=== PATIENT | male | born 2000 | race Caucasian/White ===

== ENCOUNTER 2021-11-29 00:48 | Emergency (ER) | payer BC ==
[~2021-11-29] VITALS: Ht 177.8 cm; Wt 72.7 kg
--- NOTE | 2021-11-29 00:50 | PHYS DOC ---
Past History Past Medical History: Asthma General Adult HPI: HPI: ".. I ve had abdomen and chest pain.. nausea .. vomiting.. and diarrhea.. .. it may have been the pizza.. from [employer]... " Patient is a 21 year old male who presents with above hx and complaints generalized abdomen pain with some referral to chest area. Patient has had nausea and vomiting and diarrhea. Patient may have had some bad food however his girlfriend ate the same pizza and did not get sick. No recent travel. No specific ill contacts. No history of trauma. No history of tarry stools. Patient did not get flu vaccination. Patient did not get COVID vaccination. Patient does have a past history of asthma. No history of gallbladder disease with him but there has been a history of gallbladder disease with mother. Review of Systems: Review of Systems: Constitutional: Denies fever or chills Eyes: Denies change in visual acuity HENT: Denies nasal congestion or sore throat Respiratory: Denies cough or shortness of breath Cardiovascular: Epigastric pain GI: Complains of generalized abdominal pain, nausea, vomiting and diarrhea : Denies dysuria Musculoskeletal: Denies back pain or joint pain Integument: Denies rash Neurologic: Denies headache, focal weakness or sensory changes Endocrine: Denies polyuria or polydipsia Lymphatic: Denies swollen glands Psychiatric: Denies depression or anxiety Family History: Family History: Gallbladder disease of mother Current Medications: Current Meds: See nursing for home meds Allergies: Allergies: No known drug allergies Physical Exam: PE: Constitutional: Well developed, well nourished, no acute distress, non-toxic appearance. [] HENT: Normocephalic, atraumatic, bilateral external ears normal, oropharynx moist, no oral exudates, nose normal. [] Eyes: PERRLA, EOMI, conjunctiva normal, no discharge. [] Neck: Normal range of motion, no tenderness, supple, no stridor. [] Cardiovascular:Heart rate regular rhythm, no murmur [] Lungs & Thorax: Bilateral breath sounds equal apex with scattered wheezes on auscultation [] Abdomen: Bowel sounds hyperactive, soft, gastric tenderness, no masses, no pulsatile masses. [] Skin: Warm, dry, no erythema, no rash. [] Back: No tenderness, no CVA tenderness. [] Extremities: No tenderness, no cyanosis, no clubbing, ROM intact, no edema. No psoas sign. Neurologic: Alert and oriented X 3, normal motor function, normal sensory function, no focal deficits noted. [] Psychologic: Affect anxious, judgement normal, mood normal. [] EKG: EKG: My interpretation of EKG shows a sinus rhythm at 67 bpm. No acute morphology time of this EKG is 138 [] Radiology/Procedures: Radiology/Procedures: [][address] [address] IMAGING REPORT Signed PATIENT: KERRY MCRAE ACCOUNT: [id number] : 2000 LOCATION: ER AGE: 21 SEX: M EXAM STATUS: PRE ER ORD. PHYSICIAN: BERENICE NEWMAN MD REASON: nvd PROCEDURE: ACUTE ABDOMEN SERIES EXAM: Frontal view of the chest, AP views of the abdomen in upright and supine positions. CLINICAL INDICATION: Reason: nvd / Spl. Instructions: / History: COMPARISON: None. FINDINGS and IMPRESSION: The heart is not enlarged. Mediastinal and hilar contours are normal. No focal parenchymal airspace opacity. No pleural effusion or pneumothorax. No abnormal small or large bowel dilatation. Moderate colonic stool content. No abnormal soft tissue mass effect. No suspicious calcifications are seen. No free intraperitoneal gas. Electronically signed by: Uday Nolasco MD (11/29/2021 1:25 AM) [place] DICTATED AND SIGNED BY: UDAY NOLASCO MD DATE: 11/29/21123 CC: BERENICE NEWMAN MD; PCP,NO ~ Heart Score: C/O Chest Pain: Yes HEART Score for Chest Pain: HEART Score for Chest Pain Response (Comments) Value History Slighlty/Non-Suspicious 0 ECG Normal 0 Age < 45 0 Risk Factors No Risk Factors 0 Troponin < Normal Limit 0 Total 0 Risk Factors: Risk Factors: DM, Current or recent (<one month) smoker, HTN, HLP, family history of CAD, obesity. Risk Scores: Score 0 - 3: 2.5% MACE over next 6 weeks - Discharge Home Score 4 - 6: 20.3% MACE over next 6 weeks - Admit for Clinical Observation Score 7 - 10: 72.7% MACE over next 6 weeks - Early Invasive Strategies Course & Med Decision Making: Course & Med Decision Making Pertinent Labs and Imaging studies reviewed. (See chart for details) Clear fluid diet only for the next 2 days. No solids. No milk products for flu ids only for 2 days. Push fluids such as apple juice, grape juice, Pedialyte, Gatorade, popsicles, sweet tea, Jell-O, must allow bowel rest. Take Tylenol and ibuprofen for discomfort. Follow-up primary care. Return if any concerns. May take [id number] Pepto-Bismol for diarrhea episodes. Return if any concerns. Short course of Pepcid 20 mg twice a day for the next 14 days. Patient take Zofran 8 mg up to 4 times a day for active vomiting. Impression: 1. Acute gastroenteritis [] Dragon Disclaimer: Dragon Disclaimer: This electronic medical record was generated, in whole or in part, using a voice recognition dictation system. Departure Departure: Referrals: PCP,NO (PCP) Scripts Ondansetron Hcl (ONDANSETRON HCL) 4 Mg Tablet 8 MG PO QIDPRN PRN for nv, #30 TAB Prov: BERENICE NEWMAN MD 11/29/21 Famotidine (PEPCID AC) 10 Mg Tablet 20 MG PO BID for gastritis for 14 Days, #56 TAB Prov: BERENICE NEWMAN MD 11/29/21 Dragon Disclaimer This chart was dictated in whole or in part using Voice Recognition software in a busy, high-work load, and often noisy Emergency Department environment. It may contain unintended and wholly unrecognized errors or omissions. Dragon Disclaimer This chart was dictated in whole or in part using Voice Recognition software in a busy, high-work load, and often noisy Emergency Department environment. It may contain unintended and wholly unrecognized errors or omissions. Dragon Disclaimer This chart was dictated in whole or in part using Voice Recognition software in a busy, high-work load, and often noisy Emergency Department environment. It may contain unintended and wholly unrecognized errors or omissions. BERENICE NEWMAN MD Nov 29, 2021 00:50
[2021-11-29] MEDS ORDERED: ONDANSETRON PF 4 MG/2 ML VIAL. IVP ONE (01:00)
[2021-11-29] MEDS ORDERED: KETOROLAC 30 MG/ML VIAL. IVP ONE (01:00)
[2021-11-29] MEDS ORDERED: IV RINGERS SOLUTION,LACTATED 1,000 ML IV SCH (01:00)
[2021-11-29] MEDS ORDERED: FAMOTIDINE 20 MG/2 ML VIAL IVP ONE (01:00)
--- NOTE | 2021-11-29 01:28 | RAD ---
EXAM: Frontal view of the chest, AP views of the abdomen in upright and supine positions. CLINICAL INDICATION: Reason: nvd / Spl. Instructions: / History: COMPARISON: None. FINDINGS and IMPRESSION: The heart is not enlarged. Mediastinal and hilar contours are normal. No focal parenchymal airspace o pacity. No pleural effusion or pneumothorax. No abnormal small or large bowel dilatation. Moderate colonic stool content. No abnormal soft tissu e mass effect. No suspicious calcifications are seen. No free intraperitoneal gas. Electronically signed by: Uday Nolasco MD (11/29/2021 1:25 AM) [facility]
[2021-11-29 01:33] VITALS: BP 117/69
[2021-11-29 01:47] LABS: CALCIUM 8.8 mg/dL (8.5-10.1); GFR 95.3; POTASSIUM 3.7 mmol/L (3.5-5.1)
[2021-11-29 01:53] LABS: ALBUMIN 4.1 g/dL (3.4-5.0); DIRECT BILIRUBIN 0.1 mg/dL (0.0-0.2); TOTAL BILIRUBIN 0.7 mg/dL (0.2-1.0); TOTAL PROTEIN 7.4 g/dL (6.4-8.2)
[2021-11-29 02:00] LABS: INFLUENZA A PATIENT NEGATIVE (NEGATIVE); INFLUENZA B PATIENT NEGATIVE (NEGATIVE)
[2021-11-29 02:19] LABS: AMPHETAMINE/METHAMPHETAMINE NEG (NEG); BARBITURATES NEG (NEG); BENZODIAZEPINES NEG (NEG); CANNABINOIDS NEG (NEG); COCAINE NEG (NEG); METHADONE NEG (NEG); OPIATES NEG (NEG); PHENCYCLIDINE NEG (NEG)
[2021-11-29 02:21] LABS: BASO # 0.1 x10^3/uL (0.0-0.2); BASO % 1 % (0-3); EOS # 0.3 x10^3/uL (0.0-0.7); EOS % 4 % (0-3); HEMATOCRIT 43.2 % (39.0-53.0); HEMOGLOBIN 14.6 g/dL (13.0-17.5); LYMPH # 3.3 x10^3/uL (1.0-4.8); LYMPH % 44 % (24-48); MEAN CORPUSCULAR HEMOGLOBIN 30 pg (25-35); MEAN CORPUSCULAR HGB CONC 34 g/dL (31-37); MEAN CORPUSCULAR VOLUME 89 fL (79-100); MONO # 0.6 x10^3/uL (0.0-1.1); MONO % 8 % (0-9); NEUT # 3.3 x10^3uL (1.8-7.7); NEUT % 44 % (31-73); PLATELET COUNT 364 x10^3/uL (140-400); RED BLOOD COUNT 4.85 x10^6/uL (4.30-5.70); RED CELL DISTRIBUTION WIDTH 13.2 % (11.5-14.5); WHITE BLOOD COUNT 7.6 x10^3/uL (4.0-11.0)
[2021-11-29 02:23] LABS: BACTERIA,URINE 0 /HPF (0-FEW); CLARITY,URINE CLEAR; COLOR,URINE YELLOW; GLUCOSE,URINE NEG (NEG); NITRITE,URINE NEG (NEG); RBC,URINE 0 /HPF (0-2); WBC,URINE 0 /HPF (0-4)
[2021-11-29] MEDS ORDERED: ONDA-84 PO (04:23)
[2021-11-29] MEDS ORDERED: FAMO10TA26 PO (04:23)
--- NOTE | 2021-11-29 06:12 | EKG ---
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
== END 2021-11-29 04:34 | disposition home or self-care (01) ==
LOC: ER 00:48
DX: K52.9 Noninfective gastroenteritis and colitis, unspecified (principal); J45.909 Unspecified asthma, uncomplicated; Z20.822 Contact with and (suspected) exposure to COVID-19
CPT/HCPCS: 36415; 74022; 80048; 80076; 80307; 81001; 82150; 83690; 85025; 87428; 93005; 96361; 96374; 96375; 99285; G0480; J1885; J2405; J3490; J7120